=== PATIENT | male | born 1975 | race African-American/Black ===

== ENCOUNTER 2021-12-26 10:14 | Emergency (ER) | payer OTHER ==
[~2021-12-26] VITALS: Ht 175.3 cm; Wt 88.5 kg
[2021-12-26 10:53] VITALS: BP 192/80
[2021-12-26] MEDS ORDERED: KETOROLAC TROMETH 60MG/2ML VIAL IM ONE (11:45)
[2021-12-26] MEDS ORDERED: PRED20TA2 PO (12:42)
[2021-12-26] MEDS ORDERED: IBUP800T27 PO (12:42)
== END 2021-12-26 12:53 | disposition home or self-care (01) ==
LOC: ER 10:14
DX: S16.1XXA Strain of muscle, fascia and tendon at neck level, initial encounter (principal); M50.30 Other cervical disc degeneration, unspecified cervical region; M54.12 Radiculopathy, cervical region; Z79.899 Other long term (current) drug therapy; X58.XXXA Exposure to other specified factors, initial encounter; Y93.89 Activity, other specified; Y92.89 Other specified places as the place of occurrence of the external cause; Y99.8 Other external cause status
CPT/HCPCS: 72040; 96372; 99283; J1885